=== PATIENT | female | born 1985 | race Caucasian/White ===

== ENCOUNTER 2017-08-16 13:25 | Inpatient (IN) | payer MEDICAID ==
--- NOTE | 2017-08-16 13:58 | ED Physician Chart ---
ED Chief Complaint/HPI - Patient Information Date Seen:: 08/16/17 Time Seen:: 13:40 Chief Complaint:: Right Arm Redness and Pain History of Present Illness:: onset x 5 days of RUE pain, erythema, and swelling; pt denies any injuries, H/As , neck pain, C/P, fever, chills, Abd. Pain, A/N/V/D/C, cough, or urinary s/s; pt 's last tetanus shot: < 5 years; UTD Allergies:: Allergies Allergy/AdvReac Type Severity Reaction Status Date / Time No Known Allergies Allergy Verified 08/16/17 13:46 Historian:: Patient Review:: Nurse's Note Reviewed ED Review of Systems - Review of Systems General/Constitutional: Fever, Chills, No weight loss, No weakness, No diaphoresis, No edema, No loss of appetite Skin: No skin lesions, Rash, No bruising Head: No headache, No light-headedness Eyes: No loss of vision, No pain, No diplopia ENT: No earache, No nasal drainage, No sore throat, No tinnitus Neck: No neck pain, No swelling, No thyromegaly, No stiffness, No mass noted Cardio Vascular: No chest pain, No palpitations, No PND, No orthopnea, No edema Pulmonary: No SOB, No cough, No sputum, No wheezing GI: No nausea, No vomiting, No diarrhea, No pain, No melena, No hematochezia, No constipation, No hematemesis G/U: No dysuria, No frequency, No hematuria Musculoskeletal: No bone or joint pain, No back pain, Muscle pain Endocrine: No polyuria, No polydipsia Psychiatric: No prior psych history, No depression, No anxiety, No suicidal ideation Hematopoietic: No bruising, No lymphadenopathy Allergic/Immuno: No urticaria, No angioedema Neurological: No syncope, No focal symptoms, No weakness, No paresthesia, No headache, No seizure, No dizziness, No confusion, No vertigo ED Past Medical History - Past Medical History Obtainable: Yes Past Medical History: Other (HIV) Family History: HTN Social History: Smoker, Alcohol, Illicit Drug Use, Single Surgical History: None Psychiatricy History: None Medication: Reviewed Family Medical History - Family Member Mother History Unknown: Yes ED Physical Exam - Physical Examination General/Constitutional: Awake, Well-developed, well-nourished, Alert, No distress, GCS 15, Non-toxic appearing, Ambulatory Head: Atraumatic Eyes: Lids, conjuctiva normal, PERRL, EOMI Skin: Nl inspection, No rash, No skin lesions, No ecchymosis, Well hydrated, No lymphadenopathy Other Skin comments:: + Cellulitis of the RUE ENMT: External ears, nose nl, Nasal exam nl, Lips, teeth, gums nl Neck: Nontender, Full ROM w/o pain, No JVD, No nuchal rigidity, No bruit, No mass, No stridor Respiratory: Nl effort/Exclusion, Clear to Auscultation, No Wheeze/Rhonchi/Rales Cardio Vascular: RRR, No murmur, gallop, rubs, NL S1 S2 GI: No tenderness/rebounding/guarding, No organomegaly, No hernia, Normal BS's, Nondistended, No mass/bruits, No McBurney tenderness : No CVA tenderness Extremities: No tenderness or effusion, Full ROM, normal strength in all extremities, No edema, Normal digits & nails Neuro/Psych: Alert/oriented, DTR's symmetric, Normal sensory exam, Normal motor strength, Judgement/insight normal, Mood normal, Normal gait, No focal deficits Misc: Normal back, No paraspinal tenderness ED Labs/Radiology/EKG Results - Lab Results Comments:: K+: 3.2 - EKG Interpretations Rate & Rhythm: ST Comments:: non-specific st-t changes ED Septic Shock - . Is Septic Shock (SBP<90, OR Lactate>4 mmol\L) present?: No ED Reassessment (Disposition) - Reassessment Reassessment Condition:: Improved - Diagnosis Diagnosis:: Right Upper Extremity Cellulitis; Hypokalemia - Aftercare/Follow up Instructions Aftercare/Follow-Up Instructions:: Counseled pt regarding lab results/diagnosis & need follow up, Counseled pt & family regarding lab results/diagnosis & need follow up - Patient Disposition Discharge/Transfer:: Acute Care w/in this hosp Accepting Physician:: Dr. Rosenberg Time Called:: 1829 Time Responded:: 18:40 Admitted to:: Med/Surg Spoke to:: Dr. Rosenberg Admitting Medical Physician:: Dr. Rosenberg Condition at Disposition:: Stable, Improved
[2017-08-16] MEDS ORDERED: cefTRIAXone 1 GM in Sodium Chloride 0.9% 50 ML IV ONE (13:59)
[2017-08-16] MEDS ORDERED: Morphine Sulfate 2 mg/mL 1mL Syr ONE (14:03)
[2017-08-16 14:27] LABS: URINE BILIRUBIN NEGATIVE (NEGATIVE); URINE BLOOD NEGATIVE (NEGATIVE); URINE GLUCOSE (UA) NEGATIVE (NEGATIVE); URINE KETONE NEGATIVE (NEGATIVE); URINE PH 5.5 (4.6 - 8.0); URINE PROTEIN NEGATIVE (NEGATIVE); URINE UROBILINOGEN 0.2 E.U./dL (0.2 - 1.0)
[2017-08-16 14:30] LABS: HEMATOCRIT 36.3 % (41.0-60); HEMOGLOBIN 12.2 gm/dL (12-16); MEAN CELL VOLUME 88.5 fl (81-100); MEAN CORPUSCULAR HEMOGLOBIN 29.8 pg (27.0-31.0); MEAN CORPUSCULAR HGB CONC 33.7 pg (28.0-36.0); MEAN PLATELET VOLUME 6.6 fl; RED CELL DISTRIBUTION WIDTH 12.7 % (11.5-20.0); WHITE BLOOD COUNT 9.4 Th/cmm (4.8-10.8)
[2017-08-16 14:36] LABS: URINE COLOR YELLOW
[2017-08-16 14:37] LABS: URINE BACTERIA FEW /hpf (NONE SEEN); URINE EPITHELIAL CELLS FEW /lpf (FEW); URINE RBC NONE SEEN /hpf (0-5)
[2017-08-16 14:45] LABS: INR 0.95 (0.5-1.4); PROTHROMBIN TIME (TEST) 9.9 SECONDS (9.5-11.5)
[2017-08-16 15:24] LABS: BASOPHIL 1 % (0-3); EOSINOPHIL 1 % (0-5); NEUTROPHILS 59 % (40-80); TOTAL CELLS COUNTED 100
[2017-08-16 15:25] LABS: PLATELET MORPHOLOGY PLATELET CLUMPS SEEN (NORMAL)
[2017-08-16 15:26] LABS: PLATELET ESTIMATE ADEQUATE (NORMAL)
[2017-08-16 15:28] LABS: ALB/GLOB RATIO 1.2 (1.0-1.8); ALKALINE PHOSPHATASE 73 U/L (34-104); ANION GAP 9.5 (7.0-16.0); BILIRUBIN,TOTAL 0.3 mg/dL (0.3-1.0); BUN - UREA NITROGEN 16 mg/dL (7-25); CALCIUM SERUM 8.9 mg/dL (8.6-10.3); CARBON DIOXIDE 24.7 mEq/L (21.0-31.0); CHLORIDE 105 mEq/L (98-107); CREATININE - SERUM 0.5 mg/dL (0.6-1.2); GLUCOSE 87 mg/dL (70-105); POTASSIUM SERUM 3.2 mEq/L (3.5-5.1); SGOT 15 U/L (13-39); SGPT/ALT 10 U/L (7-52); SODIUM SERUM 136 mEq/L (136-145)
[2017-08-16] MEDS ORDERED: Potassium Chloride 20 mEq ER Tab PO ONE ×2 (16:31→18:18)
[2017-08-16] MEDS ORDERED: Maalox 30 mL Cup PO PRN (18:58)
[2017-08-16] MEDS: Hydrocodone/APAP 5mg/325mg Tab PO PRN (23:18)
[2017-08-17] VITALS: BP 136/93
[2017-08-17] MEDS ORDERED: Pneumococcal Vaccine 0.5 mL Vial IM ONE (00:10)
[2017-08-17 05:25] LABS: HEMATOCRIT 37.6 % (41.0-60); HEMOGLOBIN 12.6 gm/dL (12-16); MEAN CELL VOLUME 88.6 fl (81-100); MEAN CORPUSCULAR HEMOGLOBIN 29.7 pg (27.0-31.0); MEAN CORPUSCULAR HGB CONC 33.5 pg (28.0-36.0); MEAN PLATELET VOLUME 7.8 fl; RED BLOOD COUNT 4.24 Mil/cmm (3.80-5.10); RED CELL DISTRIBUTION WIDTH 13.2 % (11.5-20.0)
[2017-08-17 05:39] LABS: PLATELET COUNT 196 Th/cmm (150-400)
[2017-08-17 05:56] LABS: ALB/GLOB RATIO 1.1 (1.0-1.8); ALKALINE PHOSPHATASE 71 U/L (34-104); ANION GAP 7.6 (7.0-16.0); BILIRUBIN,TOTAL 0.3 mg/dL (0.3-1.0); BUN - UREA NITROGEN 15 mg/dL (7-25); CALCIUM SERUM 8.7 mg/dL (8.6-10.3); CARBON DIOXIDE 23.4 mEq/L (21.0-31.0); CHLORIDE 104 mEq/L (98-107); CREATININE - SERUM 0.5 mg/dL (0.6-1.2); GLUCOSE 100 mg/dL (70-105); SGOT 14 U/L (13-39); SGPT/ALT 9 U/L (7-52); SODIUM SERUM 131 mEq/L (136-145)
[2017-08-17 06:04] LABS: NEUTROPHILS 60 % (40-80); PLATELET MORPHOLOGY PLATELET CLUMPS SEEN (NORMAL); TOTAL CELLS COUNTED 100
[2017-08-17] MEDS: cefTRIAXone 1 GM in Sodium Chloride 0.9% 50 ML IV SCH (08:16)
--- NOTE | 2017-08-17 11:49 | History & Physical ---
ADMIT DATE: 08/17/2017 CHIEF COMPLAINT: Right arm pain. HISTORY OF PRESENT ILLNESS: A 32-year-old female, who is homeless, has history of anxiety and depression, history of substance abuse, uses drugs intravenously, IV heroin, ____ and went to the Emergency Room for evaluation of right upper extremity swelling. I was told that the patient has cellulitis. Upon further questioning, it is noted that the patient was using IV drugs on that site. PAST MEDICAL HISTORY: Remarkable for: 1. Recently diagnosed HIV. 2. Depression. MEDICATIONS AT HOME: Prozac, Neurontin, and diclofenac. ALLERGIES: The patient is not allergic to any medications. SOCIAL HISTORY: The patient is homeless. The patient has history of smoking cigarette, drinking alcohol, and using street drug use. FAMILY MEDICAL HISTORY: Remarkable for diabetes. REVIEW OF SYSTEMS: The patient has chills. Denies any headache. Denies any chest pain, shortness of breath, palpitation, dizziness, nausea, vomiting, diarrhea, hematuria, hematochezia, melena. MENSTRUAL AND GYNECOLOGICAL HISTORY: She is 1, para 1. She has 1 child. PHYSICAL EXAMINATION: GENERAL: Alert, awake, lying in the bed without any acute distress. VITAL SIGNS: Temperature 97.6, pulse 65, respiratory rate 17, blood pressure 100/70. HEENT: Normocephalic and atraumatic. Extraocular muscles are intact. Tongue was pink and coated. Poor dentition noted. No oral lesion. No exudate. No sinus tenderness. NECK: Supple. No JVD. No hepatojugular reflux. No lymphadenopathy, thyromegaly or carotid bruit. HEART: Regular. No S3, no S4, no murmur. CHEST: Lung equal in expansion, no wheezing, no crackles. ABDOMEN: Soft. No guarding. No rigidity. Liver and spleen palpable. No palpable mass. EXTREMITIES: No edema of the lower extremity. Right lower extremity has significant amount of swelling and tenderness noted. There is also a track pepe of shooting IV drug also noted. NEUROLOGIC: Nonfocal. IMPRESSION: 1. Thrombophlebitis. 2. Questionable right upper extremity cellulitis. 3. Human immunodeficiency virus positive. 4. Homelessness. 5. Drug use. 6. Depression. PLAN: 1. Social Service consult. 2. Moist heat. 3. Antiinflammatory medicine. 4. Psych and Infectious Disease consultation. 5. Empirical IV antibiotic. 6. Appropriate home medicine reconciliation. 7. Follow lab. 8. Follow consult recommendation. 9. Care plan reviewed and discussed with staff. [facility]# [id number]
[2017-08-17] MEDS ORDERED: Probiotic Screen MC PRN (17:08)
--- NOTE | 2017-08-17 22:54 | Consultation ---
Consult Note - Consult Note Service Date: 08/17/17 Referring Physician: Callum Rosenberg Consult Note: PHYSICIAN Consultation Note: Date of Admission: 08/16/17 Purpose of Consultation: HIV and cellulitis. Chief Complaint: Patient KUSUM CARREON was admitted to location Medical[facility] Unit I with right forearm CELLULITIS. History of Present Illness: 32 Y F with recent disgnosis of HIV (as per patient), IVDA, presented to the er with pain and swelling of the right forearm. She was started on vanco iv and ceftriaxone. ID consult was called for further management. She remains afebrile and is doing better. Past Medical History: hiv, depression. Allergies Allergy/AdvReac Type Severity Reaction Status Date / Time No Known Allergies Allergy Verified 08/16/17 13:46 Vital Signs Temp 98.4 F 08/17/17 17:02 Pulse 80 08/17/17 17:02 Resp 16 08/17/17 17:02 BP 104/57 08/17/17 17:02 Pulse Ox 98 08/17/17 17:02 Intake & Output 08/17/17 08/17/17 08/18/17 06:59 18:59 06:59 Intake Total 490 300 Balance 490 300 Weight (lbs) 53.705 kg 53.705 kg Intake: Intake, IV Amount 250 300 Vancomycin HCl 0.75 gm In 250 Sodium Chloride 0.9% 250 ml @ 165 mls/hr IV Q12H [facility] Rx#:[id number] Vancomycin HCl 1.25 gm In 250 Sodium Chloride 0.9% 250 ml @ 165 mls/hr IV Q12H [facility] Rx#:[id number] cefTRIAXone 1 gm In 50 Sodium Chloride 0.9% 50 ml @ 100 mls/hr IV Q24HR JENN[facility]ER Rx#:[id number] Oral 240 Other: # Voids 1 Laboratory Results - last 24 hr 08/17/17 08/17/17 05:03 05:03 WBC 8.0 RBC 4.24 Hgb 12.6 Hct 37.6 L MCV 88.6 MCH 29.7 MCHC Differential 33.5 RDW 13.2 Plt Count 196 MPV 7.8 Neutrophils (Manual) 60 Lymphocytes 34 Monocytes 6 Platelet Morphology PLATELET CLUMPS SEEN Sodium 131 L Potassium 4.0 Chloride 104 Carbon Dioxide 23.4 Anion Gap 7.6 BUN 15 Creatinine 0.5 L Est GFR ( Amer) > 60.0 Est GFR (Non-Af Amer) > 60.0 BUN/Creatinine Ratio 30.0 Glucose 100 Calcium 8.7 Total Bilirubin 0.3 AST 14 ALT 9 Alkaline Phosphatase 71 Total Protein 6.8 Albumin 3.5 L Globulin 3.3 Albumin/Globulin Ratio 1.1 Home Medication Medication Instructions Recorded Type Gabapentin [Neurontin] 600 mg PO BID 06/27/15 History Diclofenac [Voltaren] 75 mg PO BID 08/16/17 History FLUoxetine HCL [Prozac*] 20 mg PO DAILY 08/16/17 History Current Medications Generic Name Dose Route Start Last Admin Trade Name Freq PRN Reason Stop Dose Admin Acetaminophen 650 mg 08/16/17 18:58 Tylenol PO 10/15/17 18:57 Q6H PRN Mild Pain/Headache/T above 101 Acetaminophen/Hydrocodone Bitart 1 tab 08/16/17 18:58 08/16/17 23:18 [place] 5mg/325mg PO 10/15/17 18:57 1 tab Q6H PRN Administration Moderate Pain Al Hydrox/Mg Hydrox/Simethicone 30 ml 08/16/17 18:58 08/17/17 21:41 Maalox PO 10/15/17 18:57 30 ml Q6H PRN Administration Dyspepsia Fluoxetine HCl 20 mg 08/17/17 09:00 08/17/17 08:19 Prozac PO 10/16/17 08:59 Not Given DAILY JENNIFER Protocol Gabapentin 600 mg 08/17/17 09:00 08/17/17 17:43 Neurontin PO 10/16/17 08:59 600 mg BID JENNIFER Administration Ceftriaxone Sodium 1 gm/ 50 mls @ 100 mls/hr 08/17/17 09:00 08/17/17 09:45 Sodium Chloride IV 10/16/17 08:59 Infused Q24HR JENNIFER Infusion Vancomycin HCl 1.25 gm/ Sodium 250 mls @ 165 mls/hr 08/17/17 10:00 08/17/17 21:33 Chloride IV 10/16/17 09:59 165 mls/hr Q12H JENNIFER Administration Lactobacillus Rhamnosus 1 each 08/18/17 09:00 Culturelle PO 10/17/17 08:59 DAILY JENNIFER Loperamide HCl 4 mg 08/17/17 16:46 Imodium PO 10/16/17 16:45 DAILY PRN Diarrhea Lorazepam 1 mg 08/16/17 18:58 08/17/17 21:41 Ativan PO 10/15/17 18:57 1 mg Q6H PRN Administration Anxiety/Agitation Protocol Miscellaneous 1 ea 08/16/17 19:02 Vancomycin Iv Per Pharmacy 10/15/17 19:01 PRN PRN PROTOCOL Miscellaneous 1 ea 08/17/17 17:08 Probiotic Screen 10/16/17 17:07 PRN PRN PROTOCOL Naproxen 500 mg 08/17/17 10:00 08/17/17 17:42 Naprosyn PO 10/16/17 09:59 500 mg BIDWM JENNIFER Administration Ondansetron HCl 4 mg 08/16/17 18:58 Zofran Odt PO 10/15/17 18:57 Q6H PRN Nausea / Vomiting Pantoprazole Sodium 40 mg 08/18/17 10:00 Protonix PO 10/17/17 09:59 QDAC JENNIFER Sodium Chloride 10 ml 08/16/17 20:00 08/17/17 21:33 Saline Flush IV 10/15/17 19:59 10 ml QSHIFT JENNIFER Administration Temazepam 30 mg 08/17/17 21:00 Restoril PO 10/15/17 20:59 HS PRN Insomnia Protocol Review of Systems: A 12 point ROS was reviewed with the pertinent positive and negatives noted in the HPI. Social History Smoking Status Unknown if ever smoked Drug Use Yes Alcohol Use Yes Family Medical History Family Medical History Mother History Unknown Yes Hx Family Cancer No Hx Family Coronary Artery Disease No Hx Family Congestive Heart Failure No Hx Family Hypertension No Hx Family Stroke No Hx Family Diabetes Yes Hx Family Seizures No Hx Family Dementia No Hx Family AIDS No Hx Family HIV No Hx Family COPD No Hx Family Hepatitis No Hx Family Psychiatric Problems No Hx Family Tuberculosis No Physical Exam: General: Comfortable, not in acute distress. HEENT: Head: Normocephalic, atraumatic. Oral cavity: Moist, pink tongue. Eyes : No pallor and icterus. Neck: Supple, no JVD. No use of accessory neck muscles Cardio: S1 and S2 within normal limits regular rhythm no murmur or gallop. Respiratory: Vesicular breath sound, no crackles no wheezing.'s is soft, nontender nondistended bowel symptoms present. Abdominal: , Nontender nondistended bowel sounds present. Genital/Urinary: Extremities: No cyanosis no clubbing or edema. Right forearm is mildly swollen and erythema has resolved. Neurological: Alert, awake oriented 3. Assessment: 1. Right forearm cellulitis improving on current treatment. 2. Complaining of having HIV. 3. Depression. 4. IV drug abuse. 5. Homelessness. Plan: 2-D echo critical, hepatitis panel., HIV screen, CD4 count, HIV RNA PCR., RPR. Antibiotic use, patient is stable. Continue vanco IV and Ceftriaxomne. services account manager Consult. Thank you, Dr Rosenberg for involving me in taking care of this patient. Signed, Darryn Hsu M.D. [id number]
--- NOTE | 2017-08-17 23:17 | Consultation ---
DATE OF CONSULTATION: 08/17/2017 HISTORY OF PRESENT ILLNESS: A 32-year-old female under the care of Dr. Rosenberg with history of apparent HIV positive, heroin use disorder, methamphetamine use disorder, using drugs intravenously. The patient with right upper extremity swelling. The patient with cellulitis. The patient states she is "always depressed," hopeless, poor sleep, okay appetite. She is denying any overt SI. The patient states she came to the hospital because she was "sick." PAST PSYCHIATRIC HISTORY: Denies any suicide attempts, but she states that she does have a previous psych admit. FAMILY HISTORY: Alludes to her aunts and uncles as "addicts." SOCIAL HISTORY: The patient was born in [place], [facility], living in [facility]. She states that she is . She states she has a 6-year-old [place] The patient alludes to long history of heroin use as well as methamphetamine use, also cigarette smoking and drinking alcohol. The patient states she has detox from heroin in the past, but relapses. MENTAL STATUS EXAMINATION: Stated age, disheveled, unkempt. Speech within normal limits. Mood is "not good." Affect withdrawn. Thought processes were linear. No SI and no HI. No overt psychotic symptoms. Insight and judgment diminished. Impulse control poor. PROVISIONAL DIAGNOSIS: Opioid use disorder, severe; methamphetamine use disorder, severe; major depression, unspecified; and anxiety, unspecified. The patient alludes to history of trauma, rule out posttraumatic stress disorder. RECOMMENDATIONS AND PLAN: We will initiate medications, though use opiate withdrawal management. Continue Prozac. The patient is currently showing signs and symptoms of active withdrawal. Also recommend coordination followup to a methadone clinic as the patient is at very high risk of relapse. No current 5150 criteria. She is not suicidal. She is not homicidal. ____. She is not gravely disabled. JOB# [id number] [facility]ENTERChuck
--- NOTE | 2017-08-18 07:15 | Progress Notes ---
DATE: 08/18/2017 SUBJECTIVE: Chart reviewed and the patient interviewed. Also discussed the patient's condition with the staff and reviewed records and labs. The patient is deeply in sleep because of withdrawal of medication. She is still restless and she is still awake and anxious according to the staff. She is on the other hand cooperative and depressed. The patient denies any thoughts of suicide or homicide, also according to the staff. I tried to interview the patient, but was not able to do so because she is still sedated. At the same time, the patient is taking Prozac and we will continue Prozac same dose. ASSESSMENT: The patient is depressed and she is still going through withdrawal. TREATMENT PLAN: We will continue Prozac same dose. Also, we will continue monitoring her behavior and her condition closely and will continue to follow up. Also, urine for drug screen ordered for the patient. No urine drug screen was ordered upon admission. JOB# [id number]
[2017-08-18] MEDS: cefTRIAXone 1 GM in Sodium Chloride 0.9% 50 ML IV SCH (09:15)
[2017-08-18] MEDS: Lactobacillus Rhamnosus 10 Billion CFU Capsule PO SCH (10:04)
--- NOTE | 2017-08-18 10:14 | Cardiology ---
08/18/[address] Rosenberg. M-MODE ECHOCARDIOGRAM: Mitral valve, anterior leaflet of mitral valve shows normal excursion, EF velocity. Posterior leaflet of mitral valve shows normal excursion. Left ventricular posterior wall showed normal thickness, excursion. Interventricular septum showed normal thickness, excursion. Ejection fraction 60%. Left atrium normal. Aortic root shows normal dimension, normal excursion of aortic leaflets. CONCLUSION: Hypertrophy of the left ventricle, ejection fraction 60%. 2D ECHO: Long axis view showed normal sized left ventricle with hypertrophy of the left ventricle. Left atrium normal. Aortic root shows normal dimension, normal excursion of aortic leaflets. Short axis view of mitral valve normal. Short axis view of aortic valve normal. Apical four chamber view showed normal sized left ventricle, left atrium, right ventricle, right atrium, tricuspid and mitral valve with hypertrophy of the left ventricle. CONCLUSION: Hypertrophy of the left ventricle, ejection fraction 60%. Doppler study shows prominent area consistent with poor compliance of left ventricle. Right ventricular systolic pressure 14 mmHg. [facility]# [id number]
[2017-08-18] MEDS: Pantoprazole 40 mg EC Tab PO SCH (10:55)
[2017-08-18] MEDS: Hydrocodone/APAP 5mg/325mg Tab PO PRN ×2 (10:57→18:10)
--- NOTE | 2017-08-18 11:28 | Infectious Disease Prog Note ---
Infectious Disease Subjective - Review of Systems Service Date: 08/18/17 Subjective: Right forearm swelling has improved. No fever. Infectious Disease Objective - Results Result Diagrams: 08/17/17 05:03 08/17/17 05:03 Recent Labs: Laboratory Last Values WBC 8.0 Th/cmm (4.8-10.8) 08/17/17 05:03 RBC 4.24 Mil/cmm (3.80-5.10) 08/17/17 05:03 Hgb 12.6 gm/dL (12-16) 08/17/17 05:03 Hct 37.6 % (41.0-60) L 08/17/17 05:03 MCV 88.6 fl (81-100) 08/17/17 05:03 MCH 29.7 pg (27.0-31.0) 08/17/17 05:03 MCHC Differential 33.5 pg (28.0-36.0) 08/17/17 05:03 RDW 13.2 % (11.5-20.0) 08/17/17 05:03 Plt Count 196 Th/cmm (150-400) 08/17/17 05:03 MPV 7.8 fl 08/17/17 05:03 Neutrophils (Manual) 60 % (40-80) 08/17/17 05:03 Lymphocytes 34 % (20-50) 08/17/17 05:03 Monocytes 6 % (2-10) 08/17/17 05:03 Eosinophils 1 % (0-5) 08/16/17 14:16 Basophils 1 % (0-3) 08/16/17 14:16 Platelet Estimate ADEQUATE (NORMAL) 08/16/17 14:16 Platelet Morphology PLATELET CLUMPS SEEN (NORMAL) 08/17/17 05:03 PT 9.9 SECONDS (9.5-11.5) 08/16/17 14:16 INR 0.95 (0.5-1.4) 08/16/17 14:16 PTT (Actin FS) 25.7 SECONDS (26.0-38.0) L 08/16/17 14:16 Sodium 131 mEq/L (136-145) L 08/17/17 05:03 Potassium 4.0 mEq/L (3.5-5.1) 08/17/17 05:03 Chloride 104 mEq/L (98-107) 08/17/17 05:03 Carbon Dioxide 23.4 mEq/L (21.0-31.0) 08/17/17 05:03 Anion Gap 7.6 (7.0-16.0) 08/17/17 05:03 BUN 15 mg/dL (7-25) 08/17/17 05:03 Creatinine 0.5 mg/dL (0.6-1.2) L 08/17/17 05:03 Est GFR ( Amer) > 60.0 ml/min (>90) 08/17/17 05:03 Est GFR (Non-Af Amer) > 60.0 ml/min 08/17/17 05:03 BUN/Creatinine Ratio 30.0 08/17/17 05:03 Glucose 100 mg/dL (70-105) 08/17/17 05:03 Whole Bld Lactic Acid 1.56 mmol/L (0.60-1.99) 08/16/17 14:16 Calcium 8.7 mg/dL (8.6-10.3) 08/17/17 05:03 Total Bilirubin 0.3 mg/dL (0.3-1.0) 08/17/17 05:03 AST 14 U/L (13-39) 08/17/17 05:03 ALT 9 U/L (7-52) 08/17/17 05:03 Alkaline Phosphatase 71 U/L (34-104) 08/17/17 05:03 Creatine Kinase 37 U/L (30-223) 08/16/17 14:16 Total Protein 6.8 gm/dL (6.0-8.3) 08/17/17 05:03 Albumin 3.5 gm/dL (3.7-5.3) L 08/17/17 05:03 Globulin 3.3 gm/dL 08/17/17 05:03 Albumin/Globulin Ratio 1.1 (1.0-1.8) 08/17/17 05:03 Serum , Qual NEGATIVE (NEGATIVE) 08/16/17 14:16 Urine Source CLEAN C 08/16/17 13:40 Urine Color YELLOW 08/16/17 13:40 Urine Clarity SLIGHT HAZY (CLEAR) 08/16/17 13:40 Urine pH 5.5 (4.6 - 8.0) 08/16/17 13:40 Ur Specific [place] >= 1.030 (1.005-1.030) 08/16/17 13:40 Urine Protein NEGATIVE mg/dL (NEGATIVE) 08/16/17 13:40 Urine Glucose (UA) NEGATIVE mg/dL (NEGATIVE) 08/16/17 13:40 Urine Ketones NEGATIVE mg/dL (NEGATIVE) 08/16/17 13:40 Urine Blood NEGATIVE (NEGATIVE) 08/16/17 13:40 Urine Nitrate NEGATIVE (NEGATIVE) 08/16/17 13:40 Urine Bilirubin NEGATIVE (NEGATIVE) 08/16/17 13:40 Urine Urobilinogen 0.2 E.U./dL (0.2 - 1.0) 08/16/17 13:40 Ur Leukocyte Esterase NEGATIVE (NEGATIVE) 08/16/17 13:40 Urine RBC NONE SEEN /hpf (0-5) 08/16/17 13:40 Urine WBC 2-5 /hpf (0-5) 08/16/17 13:40 Ur Epithelial Cells FEW /lpf (FEW) 08/16/17 13:40 Urine Bacteria FEW /hpf (NONE SEEN) 08/16/17 13:40 Urine Mucus MODERATE /lpf (FEW) 08/16/17 13:40 Urine Test NEGATIVE 08/16/17 13:40 Vancomycin Trough 7.3 ug/mL (10-20) L 08/18/17 09:00 HIV 1&2 Antibody Screen POSITIVE (NEG) H 08/18/17 05:03 - Physical Exam Vitals and I&O: Vital Signs Temp 98.4 F 08/18/17 04:00 Pulse 84 08/18/17 04:00 Resp 18 08/18/17 04:00 BP 94/62 08/18/17 04:00 Pulse Ox 99 08/18/17 04:00 Intake & Output 08/17/17 08/18/17 08/18/17 18:59 06:59 18:59 Intake Total 300 500 Balance 300 500 Weight (lbs) 57.243 kg Intake: Intake, IV Amount 300 250 Vancomycin HCl 1.25 gm In 250 250 Sodium Chloride 0.9% 250 ml @ 165 mls/hr IV Q12H [facility]ENN[facility]ER Rx#:[id number] cefTRIAXone 1 gm In 50 Sodium Chloride 0.9% 50 ml @ 100 mls/hr IV Q24HR JENNIFER Rx#:[id number] Oral 250 Other: # Voids 2 Active Medications: Current Medications Acetaminophen (Tylenol) 650 mg PO Q6H PRN PRN Reason: Mild Pain/Headache/T above 101 Stop: 10/15/17 18:57 Acetaminophen/Hydrocodone Bitart ([place] 5mg/325mg) 1 tab PO Q6H PRN PRN Reason: Moderate Pain Stop: 10/15/17 18:57 Last Admin: 08/18/17 10:57 Dose: 1 tab Al Hydrox/Mg Hydrox/Simethicone (Maalox) 30 ml PO Q6H PRN PRN Reason: Dyspepsia Stop: 10/15/17 18:57 Last Admin: 08/17/17 21:41 Dose: 30 ml Fluoxetine HCl (Prozac) 20 mg PO DAILY JENNIFER PRN Reason: Protocol Stop: 10/16/17 08:59 Last Admin: 08/18/17 10:00 Dose: 20 mg Gabapentin (Neurontin) 600 mg PO BID JENNIFER Stop: 10/16/17 08:59 Last Admin: 08/18/17 10:03 Dose: 600 mg Ceftriaxone Sodium 1 gm/ (Sodium Chloride) 50 mls @ 100 mls/hr IV Q24HR JENNIFER Stop: 10/16/17 08:59 Last Admin: 08/18/17 09:15 Dose: 100 mls/hr Vancomycin HCl 1.25 gm/ Sodium (Chloride) 250 mls @ 165 mls/hr IV Q12H JENNIFER Stop: 08/18/17 12:00 Last Admin: 08/18/17 11:01 Dose: 165 mls/hr Vancomycin HCl 1 gm/ Sodium (Chloride) 250 mls @ 165 mls/hr IV Q8H JENNIFER Stop: 10/17/17 15:59 Lactobacillus Rhamnosus (Culturelle) 1 each PO DAILY JENNIFER Stop: 10/17/17 08:59 Last Admin: 08/18/17 10:04 Dose: 1 each Loperamide HCl (Imodium) 4 mg PO DAILY PRN PRN Reason: Diarrhea Stop: 10/16/17 16:45 Lorazepam (Ativan) 1 mg PO Q6H PRN; Protocol PRN Reason: Anxiety/Agitation Stop: 10/15/17 18:57 Last Admin: 08/17/17 21:41 Dose: 1 mg Miscellaneous (Vancomycin Iv Per Pharmacy) 1 ea MC PRN PRN PRN Reason: PROTOCOL Stop: 10/15/17 19:01 Miscellaneous (Probiotic Screen) 1 ea MC PRN PRN PRN Reason: PROTOCOL Stop: 10/16/17 17:07 Naproxen (Naprosyn) 500 mg PO BIDWM [facility] Stop: 10/16/17 09:59 Last Admin: 08/18/17 10:55 Dose: 500 mg Ondansetron HCl (Zofran Odt) 4 mg PO Q6H PRN PRN Reason: Nausea / Vomiting Stop: 10/15/17 18:57 Pantoprazole Sodium (Protonix) 40 mg PO QDAC [facility] Stop: 10/17/17 09:59 Last Admin: 08/18/17 10:55 Dose: 40 mg Sodium Chloride (Saline Flush) 10 ml IV QSHIFT [facility] Stop: 10/15/17 19:59 Last Admin: 08/18/17 10:46 Dose: 10 ml Temazepam (Restoril) 30 mg PO HS PRN; Protocol PRN Reason: Insomnia Stop: 10/15/17 20:59 General: no acute distress, well developed, well nourished HEENT: atraumatic, normocephalic, PERRLA, EOMI Neck: supple, no thyromegaly Cardiovascular: S1S2, regular Lungs: clear to auscultation bilaterally, clear to percussion Abdomen: soft, no tender, no distended Extremities: no cyanosis, no clubbing, no edema Neurological: awake, alert Skin: intact Infectious Disease Assmt/Plan - Problem List Patient Problems: All Active Problems RIGHT FOREARM PAIN, REDNESS AND SWELLING (Acute) Blunt head trauma (Acute) S09.8XXA Illicit drug use (Acute) F19.90 Infected abrasion of knee (Acute) S80.219A - Assessment Assessment: 1. Right forearm cellulitis improving on current treatment. 2. Complaining of having HIV. 3. Depression. 4. IV drug abuse. 5. Homelessness. Plan: 2-D echo critical, hepatitis panel., HIV screen, CD4 count, HIV RNA PCR., RPR. Antibiotic use, patient is stable. Continue vanco IV and Ceftriaxomne. patient services representative Consult. - Plan Plan: 2-D echo, hepatitis panel. HIV screen, CD4 count, HIV RNA PCR., RPR. Antibiotic use, patient is stable. Continue vanco IV and Ceftriaxomne. patient services representative Consult.
[2017-08-18 20:36] LABS: AMPHETAMINE URINE NEGATIVE (NEGATIVE)
[2017-08-18 20:37] LABS: BARBITURATES URINE NEGATIVE (NEGATIVE); METHADONE URINE NEGATIVE (NEGATIVE)
[2017-08-19 07:29] LABS: CREATININE - SERUM 0.6 mg/dL (0.6-1.2)
[2017-08-19] MEDS: Pantoprazole 40 mg EC Tab PO SCH (07:47)
--- NOTE | 2017-08-19 09:03 | Discharge Summary ---
General Discharge Summary - Discharge Summary Date of Admission: 08/16/17 Admitting Diagnosis: right upper extremity swelling and pain Patient Problems: All Active Problems RIGHT FOREARM PAIN, REDNESS AND SWELLING (Acute) Blunt head trauma (Acute) S09.8XXA Illicit drug use (Acute) F19.90 Infected abrasion of knee (Acute) S80.219A Discharge Date: 08/19/17 Discharge Diagnosis: right upper extremity thrombophlebitis and cellulitis, HIV positive, psych. Laboratory Findings: Laboratory Tests 08/17/17 08/17/17 08/18/17 05:03 05:03 05:03 WBC 8.0 RBC 4.24 Hgb 12.6 Hct 37.6 L MCV 88.6 MCH 29.7 MCHC Differential 33.5 RDW 13.2 Plt Count 196 MPV 7.8 Neutrophils (Manual) 60 Lymphocytes 34 Monocytes 6 Platelet Morphology PLATELET CLUMPS SEEN Sodium 131 L Potassium 4.0 Chloride 104 Carbon Dioxide 23.4 Anion Gap 7.6 BUN 15 Creatinine 0.5 L Est GFR ( Amer) > 60.0 Est GFR (Non-Af Amer) > 60.0 BUN/Creatinine Ratio 30.0 Glucose 100 Calcium 8.7 Total Bilirubin 0.3 AST 14 ALT 9 Alkaline Phosphatase 71 Total Protein 6.8 Albumin 3.5 L Globulin 3.3 Albumin/Globulin Ratio 1.1 Vancomycin Trough Urine Opiates Screen Urine Methadone Screen Ur Barbiturates Screen Ur Tricyclics Screen Ur Phencyclidine Scrn Amphetamines Screen U Methamphetamines Scrn U Benzodiazepines Scrn U Cocaine Metab Screen U Cannabinoids Screen HIV 1&2 Antibody Screen POSITIVE H 08/18/17 08/18/17 08/19/17 09:00 19:50 07:00 WBC RBC Hgb Hct MCV MCH MCHC Differential RDW Plt Count MPV Neutrophils (Manual) Lymphocytes Monocytes Platelet Morphology Sodium Potassium Chloride Carbon Dioxide Anion Gap BUN Creatinine Est GFR ( Amer) Est GFR (Non-Af Amer) BUN/Creatinine Ratio Glucose Calcium Total Bilirubin AST ALT Alkaline Phosphatase Total Protein Albumin Globulin Albumin/Globulin Ratio Vancomycin Trough 7.3 L 11.0 Urine Opiates Screen POSITIVE H Urine Methadone Screen NEGATIVE Ur Barbiturates Screen NEGATIVE Ur Tricyclics Screen NEGATIVE Ur Phencyclidine Scrn NEGATIVE Amphetamines Screen NEGATIVE U Methamphetamines Scrn POSITIVE H U Benzodiazepines Scrn POSITIVE H U Cocaine Metab Screen NEGATIVE U Cannabinoids Screen NEGATIVE HIV 1&2 Antibody Screen 10/05/17 07:00 WBC RBC Hgb Hct MCV MCH MCHC Differential RDW Plt Count MPV Neutrophils (Manual) Lymphocytes Monocytes Platelet Morphology Sodium Potassium Chloride Carbon Dioxide Anion Gap BUN 17 Creatinine 0.6 Est GFR ( Amer) Est GFR (Non-Af Amer) BUN/Creatinine Ratio Glucose Calcium Total Bilirubin AST ALT Alkaline Phosphatase Total Protein Albumin Globulin Albumin/Globulin Ratio Vancomycin Trough Urine Opiates Screen Urine Methadone Screen Ur Barbiturates Screen Ur Tricyclics Screen Ur Phencyclidine Scrn Amphetamines Screen U Methamphetamines Scrn U Benzodiazepines Scrn U Cocaine Metab Screen U Cannabinoids Screen HIV 1&2 Antibody Screen Hospital Course: 32-year-old Irish female admitted to MedSurg floor from the emergency room for evaluation of right upper extremity swelling and pain. Please see my Medical H&P for further information. Patient was seen by me and placed on IV antibiotic, infectious diseases consultation, psych consultation and family welfare social work professor consultation were requested. Patient was seen by all disciplines and appropriate treatment plan provided for her. Patient was seen by social service, and seemed very hard to appropriate supportive system which included methadone clinic, HIV clinic, AIDS foundation as well as follow with primary care M.D. Patient did have significant improvement on her right upper extremity swelling and it was suspected secondary to thrombophlebitis. Her HIV screen came back positive and patient was strongly suggested to have follow-up with the HIV clinic in order to start her treatment as soon as possible. She did have echocardiogram which was unremarkable for any vegetation. Psychiatrist suggested to treat her as an outpatient. Patient is discharged to self-care with Pap collection system failure follow-up of her underlying illness as well as social situation. Prescription for NSAIDs and antibiotics given. Condition at Discharge: Stable Disposition: Other Care w/in this hosp Home Medications: Home Medication Medication Instructions Recorded Type Gabapentin [Neurontin] 600 mg PO BID 06/27/15 History Diclofenac [Voltaren] 75 mg PO BID 08/16/17 History FLUoxetine HCL [Prozac*] 20 mg PO DAILY 08/16/17 History Inpatient Medications: Current Medications Acetaminophen (Tylenol) 650 mg PO Q6H PRN PRN Reason: Mild Pain/Headache/T above 101 Stop: 10/15/17 18:57 Acetaminophen/Hydrocodone Bitart ([place] 5mg/325mg) 1 tab PO Q6H PRN PRN Reason: Moderate Pain Stop: 12/01/17 18:57 Last Admin: 08/18/17 18:10 Dose: 1 tab Al Hydrox/Mg Hydrox/Simethicone (Maalox) 30 ml PO Q6H PRN PRN Reason: Dyspepsia Stop: 10/15/17 18:57 Last Admin: 08/17/17 21:41 Dose: 30 ml Fluoxetine HCl (Prozac) 20 mg PO DAILY JENNIFER PRN Reason: Protocol Stop: 10/16/17 08:59 Last Admin: 08/18/17 10:00 Dose: 20 mg Gabapentin (Neurontin) 600 mg PO BID JENNIFER Stop: 10/16/17 08:59 Last Admin: 08/18/17 18:10 Dose: 600 mg Ceftriaxone Sodium 1 gm/ (Sodium Chloride) 50 mls @ 100 mls/hr IV Q24HR JENNIFER Stop: 10/16/17 08:59 Last Infusion: 08/18/17 20:05 Dose: Infused Vancomycin HCl 1 gm/ Sodium (Chloride) 250 mls @ 165 mls/hr IV Q8H JENNIFER Stop: 10/17/17 15:59 Last Admin: 08/19/17 07:47 Dose: 166 mls/hr Lactobacillus Rhamnosus (Culturelle) 1 each PO DAILY [facility] Stop: 10/17/17 08:59 Last Admin: 08/18/17 10:04 Dose: 1 each Loperamide HCl (Imodium) 4 mg PO DAILY PRN PRN Reason: Diarrhea Stop: 10/16/17 16:45 Lorazepam (Ativan) 1 mg PO Q6H PRN; Protocol PRN Reason: Anxiety/Agitation Stop: 10/15/17 18:57 Last Admin: 08/17/17 21:41 Dose: 1 mg Miscellaneous (Vancomycin Iv Per Pharmacy) 1 ea MC PRN PRN PRN Reason: PROTOCOL Stop: 10/15/17 19:01 Miscellaneous (Probiotic Screen) 1 ea MC PRN PRN PRN Reason: PROTOCOL Stop: 10/16/17 17:07 Naproxen (Naprosyn) 500 mg PO BIDWM [facility] Stop: 10/16/17 09:59 Last Admin: 08/19/17 07:47 Dose: 500 mg Ondansetron HCl (Zofran Odt) 4 mg PO Q6H PRN PRN Reason: Nausea / Vomiting Stop: 10/15/17 18:57 Pantoprazole Sodium (Protonix) 40 mg PO QDAC [facility] Stop: 10/17/17 09:59 Last Admin: 08/19/17 07:47 Dose: 40 mg Sodium Chloride (Saline Flush) 10 ml IV QSHIFT [facility] Stop: 10/15/17 19:59 Last Admin: 08/18/17 22:52 Dose: 10 ml Temazepam (Restoril) 30 mg PO HS PRN; Protocol PRN Reason: Insomnia Stop: 10/15/17 20:59 Activity: As Tolerated Discharge Diet: Regular Consults and Follow-Up: not on staff,PCP is [Non Staff] -
[2017-08-19] MEDS: Lactobacillus Rhamnosus 10 Billion CFU Capsule PO SCH (09:20)
[2017-08-19] MEDS: cefTRIAXone 1 GM in Sodium Chloride 0.9% 50 ML IV SCH (09:32)
[2017-08-19 12:14] LABS: HEP B CORE IGM Negative (Negative); HEP C ANTIBODY 7.8 s/co ratio (0.0-0.9)
--- NOTE | 2017-08-19 22:45 | Consultation ---
DATE OF CONSULTATION: 08/19/2017 HISTORY OF PRESENT ILLNESS: A 32-year-old female, HIV positive, heroin use disorder, meth use disorder, using drugs intravenously. The patient with right upper extremity swelling, cellulitis, attesting to depression, denying any current SI. Currently, the patient is being discharged from the hospital, hopeful, motivated, and optimistic. She is being recommended to go to a Methadone Clinic and also wants to go to an HIV Clinic, strongly encouraged sobriety. PAST PSYCHIATRIC HISTORY: Noted. SOCIAL HISTORY: The patient is homeless, but she does have social support, friend around, family around, mother around, friend willing to drive her to the Methadone Clinic and her appointments. MENTAL STATUS EXAMINATION: Stated age. Better grooming. Speech within normal limits. Mood "better." Affect constricted. Thought processes were linear and engaged, no SI, no intent, no plan. No HI, no intent, no plan. No overt psychotic symptoms. Improved insight and judgment. PROVISIONAL DIAGNOSIS: Opiate use disorder, severe; methamphetamine use disorder, severe; major depression, unspecified; anxiety, unspecified. RECOMMENDATIONS AND PLAN: Recommend Methadone Clinic. Recommend HIV Clinic. Resources were given. The patient is improving. No 5150 criteria. No SI, no HI. No GD. [facility]# [id number]
[2017-08-20 18:18] LABS: HIV 1 RNA QUALITATIVE POSITIVE
[2017-08-20 18:19] LABS: FINAL INTERPRETATION POSITVE
== END 2017-08-19 14:25 | disposition home or self-care (01) | DRG 197 ==
LOC: ER 13:25 → MSI 19:01
PROVIDERS: ADMIT Internal Medicine; ATTEND Internal Medicine
DX: I80.9 Phlebitis and thrombophlebitis of unspecified site (principal); F33.9 Major depressive disorder, recurrent, unspecified; L03.113 Cellulitis of right upper limb; Z59.0 Homelessness; F11.20 Opioid dependence, uncomplicated; F41.9 Anxiety disorder, unspecified; F17.210 Nicotine dependence, cigarettes, uncomplicated; E87.6 Hypokalemia
CPT/HCPCS: 36415-UA; 80053-TC; 80074-90; 80202-TC; 80307; 81001-TC; 81025-TC; 82550-TC; 82565-TC; 83605; 84520-TC; 84703-TC; 85007-TC; 85027-TC; 85610-TC; 85730-TC; 86361-90; 86592-TC; 86689-90; 86703-TC; 87389-90; 93005; 96375; J0696; J2270; J3370; J7040; Q0162; Z7610